=== PATIENT | female | born 1980 | race Caucasian/White ===

== ENCOUNTER → 2017-03-01 | Outpatient (CLI) | payer BC ==
[~2017-03-01] MED LIST: MONT1TAB5 PO; MULT-506 PO; VNTHFA/IN INH
== END | disposition home or self-care (01) ==
LOC: C.PAPS 13:36
PROVIDERS: ATTEND Obstetrics & Gynecology
DX: Z01.419 Encounter for gynecological examination (general) (routine) without abnormal findings (principal)

== ENCOUNTER 2017-07-29 18:07 | Emergency (ER) | payer BC ==
[~2017-07-29] VITALS: Ht 160 cm; Wt 48.4 kg
[~2017-07-29 18:07] MED LIST changes: -MONT1TAB5 PO; -VNTHFA/IN INH
[2017-07-29 18:12] VITALS: TEMP 37; Ht 160 cm; Wt 48.4 kg
[2017-07-29] MEDS ORDERED: SODIUM CHLORIDE 0.9% 1000ML 1,000 ML IV STA (18:22)
[2017-07-29] MEDS ORDERED: MONT1TAB5 PO (18:27)
--- NOTE | 2017-07-29 18:41 | EMERGENCY ROOM VISIT NOTE ---
History Report prepared by Scribe: Litzy Diez Under the Supervision of: Dr. Cesar Willis D.O. First contact with patient: 18:09 Chief Complaint: ANXIETY Stated Complaint: BREATHING DIFFICULTY History of Present Illness The patient is a 36 year old female who presents to the Emergency Room with complaints of difficulty breathing. She was brought to the ED via ALS. She reports while she was at work this evening, around 1730, she felt "severe chest pain" located in the middle of her chest and became short of breath. She denies any jaw pain or arm pain, but admits that upon EMS arrival, she experienced a "pins and needle sensation" to her hands, arms and feet. She still feels numbness in her bilateral feet here in the ED. The patient admits she has experienced similar symptoms like today's episode once before. She is not a smoker and has no personal history of heart disease. She admits to a family history of diabetes. The patient also admits to plane travel 2 weeks ago. She denies any personal history of previous blood clots or any recent calf swelling. She normally walks for exercises and reports she has never experienced symptoms like today's episode when she's been walking. The patient denies any chronic medical problems. She also denies any headache, change in vision, fevers, nausea, vomiting, diarrhea, pain with urination, and melena. Source of History: patient Onset: 1729 today Position: chest Quality: other (difficulty breathing) Associated Symptoms: + chest pain, + numbness (hands, arms, feet), No fevers , No headache, No nausea, No vomiting, No melena, No diarrhea, No urinary symptoms Review of Systems See HPI for pertinent positives & negatives. A total of 10 systems reviewed and were otherwise negative. Family History Diabetes mellitus Heart disease Social History Smoking Status: Never Smoker Alcohol Use: occasionally Drug Use: none Marital Status: Housing Status: lives with significant other Occupation Status: employed Current/Historical Medications Scheduled Montelukast Sodium (Montelukast Sodium), 10 MG PO HS Multivitamin (Multivitamin), 1 TAB PO DAILY Allergies Coded Allergies: No Known Allergies (Unverified , 07/29/17) Physical Exam Vital Signs Date Time Temp Pulse Resp B/P (MAP) Pulse Ox O2 Delivery O2 Flow Rate FiO2 07/29/17 21:13 72 16 113/67 97 Room Air 07/29/17 20:37 66 104/60 97 Room Air 07/29/17 19:24 73 20 120/69 99 Room Air 07/29/17 18:13 75 07/29/17 18:12 37.0 75 16 141/66 99 Room Air Physical Exam GENERAL: Patient is sitting up in bed, alert, well appearing, well nourished, no distress, non-toxic EYE EXAM: normal conjunctiva, PERRL and EOM's intact OROPHARYNX: no exudate, no erythema, lips, buccal mucosa, and tongue normal and mucous membranes are moist NECK: supple, no nuchal rigidity, no adenopathy, non-tender LUNGS: Clear to auscultation. Normal chest wall mechanics HEART: no murmurs, S1 normal and S2 normal ABDOMEN: abdomen soft, non-tender, normo-active bowel sounds, no masses, no rebound or guarding. BACK: Back is symmetrical on inspection and there is no deformity, no midline tenderness, no CVA tenderness. SKIN: no rashes and no bruising UPPER EXTREMITIES: upper extremities are grossly normal. LOWER EXTREMITIES: No pitting edema. NEURO EXAM: Normal sensorium, cranial nerves II-XII intact, normal speech, no weakness of arms, no weakness of legs. Medical Decision & Procedures ER Provider Diagnostic Interpretation: Radiology results as stated below per my review and the radiologist's interpretation: CHEST ONE VIEW PORTABLE HISTORY: 36 years-old Female acute atypical chest pain COMPARISON: Chest radiograph 04/29/2016. TECHNIQUE: Portable upright AP view of the chest FINDINGS: Cardiomediastinal and hilar silhouettes are within normal limits. There is no pneumothorax, pleural effusion or focal airspace consolidation. There is no overt pulmonary edema. Bones are grossly intact. IMPRESSION: No acute cardiopulmonary process. The above report was generated using voice recognition software. It may contain grammatical, syntax or spelling errors. Electronically signed by: Dominic Nix M.D. 07/29/2017 7:10 PM Laboratory Results 07/29/17 18:30 Red Blood Count 4.55, Mean Corpuscular Volume 83.5, Mean Corpuscular Hemoglobin 28.8, Mean Corpuscular Hemoglobin Concent 34.5, Mean Platelet Volume 9.5, Neutrophils (%) (Auto) 65.3, Lymphocytes (%) (Auto) 26.6, Monocytes (%) (Auto) 5.1, Eosinophils (%) (Auto) 2.2, Basophils (%) (Auto) 0.5, Neutrophils # (Auto) 5.05, Lymphocytes # (Auto) 2.05, Monocytes # (Auto) 0.39, Eosinophils # (Auto) 0.17, Basophils # (Auto) 0.04 07/29/17 18:30 Test 07/29/17 18:30 07/29/17 20:30 White Blood Count 7.72 K/uL (4.8-10.8) Red Blood Count 4.55 M/uL (4.2-5.4) Hemoglobin 13.1 g/dL (12.0-16.0) Hematocrit 38.0 % (37-47) Mean Corpuscular Volume 83.5 fL (80-100) Mean Corpuscular Hemoglobin 28.8 pg (25-34) Mean Corpuscular Hemoglobin Concent 34.5 g/dl (32-36) Platelet Count 283 K/uL (130-400) Mean Platelet Volume 9.5 fL (7.4-10.4) Neutrophils (%) (Auto) 65.3 % Lymphocytes (%) (Auto) 26.6 % Monocytes (%) (Auto) 5.1 % Eosinophils (%) (Auto) 2.2 % Basophils (%) (Auto) 0.5 % Neutrophils # (Auto) 5.05 K/uL (1.4-6.5) Lymphocytes # (Auto) 2.05 K/uL (1.2-3.4) Monocytes # (Auto) 0.39 K/uL (0.11-0.59) Eosinophils # (Auto) 0.17 K/uL (0-0.5) Basophils # (Auto) 0.04 K/uL (0-0.2) RDW Standard Deviation 38.8 fL (36.4-46.3) RDW Coefficient of Variation 12.8 % (11.5-14.5) Immature Granulocyte % (Auto) 0.3 % Immature Granulocyte # (Auto) 0.02 K/uL (0.00-0.02) D-Dimer < 190 ug/L FEU (0-500) Anion Gap 5.0 mmol/L (3-11) Est Creatinine Clear Calc Drug Dose 58.3 ml/min Estimated GFR () 82.8 Estimated GFR (Non- 71.4 BUN/Creatinine Ratio 14.7 (10-20) Calcium Level 9.2 mg/dl (8.5-10.1) Total Creatine Kinase 160 U/L (26-192) Creatine Kinase MB 2.2 ng/ml (0.5-3.6) Creatine Kinase MB Ratio 1.4 (0-3.0) Troponin I < 0.015 ng/ml (0-0.045) Laboratory results per my review. Medications Administered Medications (Trade) Dose Ordered Sig/Young Route Start Time Stop Time Status Last Admin Dose Admin Sodium Chloride 1,000 ml @ 999 mls/hr Q1H1M STAT IV 07/29/17 18:22 07/29/17 19:22 DC 07/29/17 18:43 999 MLS/HR ECG Indication: chest pain, SOB/dyspnea Rate (beats per minute): 70 Rhythm: sinus rhythm Findings: no ectopy, other (normal axis) ED Course ED COURSE: Vital signs were reviewed and showed the patient is hypertensive. The patients medical record was reviewed The above diagnostic studies were performed and reviewed. ED treatments and interventions as stated above. 1814: The patient was evaluated in room C1. A complete history and physical examination was performed. 1821: NSS 1000 ml @ 999 mls/hr IV. 0: Upon reevaluation, the patient is feeling much better. I discussed my findings with the patient and she understands and agrees with the treatment plan. Based on the patients age, coexisting illnesses, exam and lab findings the decision to treat as an outpatient was made. The patient remained stable while under my care. The patient appeared well at the time of discharge. Medical Decision Differential diagnoses includes but is not limited to acute coronary syndrome, myocardial infarction, pericarditis, pulmonary embolus, aortic dissection, pneumonia, pneumothorax, musculoskeletal, shingles, esophageal. Patient is a 36-year-old female who presents to the ER for midsternal chest pain associated with bilateral paresthesias in the upper and lower extremities. She notes pain was worse with breathing. No focal deficit. Completely neurologically intact. EKG was unremarkable. She denies any history of diabetes, hypertension, hyperlipidemia, CAD, smoking or sudden in her family. Patient admits to a recent trip 2 weeks ago. She denies any swelling or calfs, hemoptysis, history of cancer, control, previous blood clots, or recent surgeries. Patient is completely back to baseline with the exception of mild paresthesias in the lower extremities. Normally does not experience any chest pain or shortness of breath with exertion. Troponin was negative 2. D-dimer was negative. Chest x-ray unremarkable. Patient was up to reverse her findings. She was discharged follow-up with PCP completely back to her baseline. Discussed with Pt concerning signs and symptoms to watch out for. Pt was instructed to follow up with their PCP and discussed with the patient their option to return to the ED at anytime for persistent or worsening symptoms. The appropriate anticipatory guidance and out-patient management, including indications for return to the emergency department, were explained at length to the patient and understood. Medication Reconcilliation Current Medication List: was personally reviewed by me Blood Pressure Screening Patient's blood pressure: Elevated blood pressure Blood pressure disposition: Elevated BP felt to be situational Impression Primary Impression: Precordial chest pain Additional Impression: Paresthesia Scribe Attestation The scribe's documentation has been prepared under my direction and personally reviewed by me in its entirety. I confirm that the note above accurately reflects all work, treatment, procedures, and medical decision making performed by me. Departure Information Dispostion Home / Self-Care Referrals Ruperto Boles, D.O.Int.Med. (PCP) Patient Instructions Chest Pain - [facility], [facility] Additional Instructions Please follow up with your primary care doctor with in the next 24 hours. Any worsening of your symptoms, please return to the ED immediately. This includes any fevers greater than 100.4, worsening pain, chest pain, shortness breath, persistent nausea, vomiting, unable to eat or drink, or any other concerning signs or symptoms from your standpoint. Problem Qualifiers
[2017-07-29 18:53] LABS: BASO % 0.5 %; BASO ABS # 0.04 K/uL (0-0.2); COMPLETE YES; EOS % 2.2 %; IG% 0.3 %; LYMPH % 26.6 %; LYMPH ABS # 2.05 K/uL (1.2-3.4); MEAN CELL VOLUME 83.5 fL (80-100); MEAN CORPUSCULAR HEMOGLOBIN 28.8 pg (25-34); MEAN CORPUSCULAR HGB CONC 34.5 g/dl (32-36); MEAN PLATELET VOLUME 9.5 fL (7.4-10.4); MONO % 5.1 %; NEUT % 65.3 %; PLATELET COUNT 283 K/uL (130-400); RED BLOOD COUNT 4.55 M/uL (4.2-5.4); WHITE BLOOD COUNT 7.72 K/uL (4.8-10.8)
[2017-07-29 19:09] LABS: BLOOD UREA NITROGEN 15 mg/dl (7-18); BUN/CREATININE RATIO 14.7 (10-20); CALCIUM 9.2 mg/dl (8.5-10.1); CARBON DIOXIDE 29 mmol/L (21-32); CHLORIDE 106 mmol/L (98-107); GLUCOSE 68 mg/dl (70-99); POTASSIUM 3.4 mmol/L (3.5-5.1); SODIUM 140 mmol/L (136-145)
--- NOTE | 2017-07-29 19:11 | DIAGNOSTIC IMAGING REPORT ---
CHEST ONE VIEW PORTABLE HISTORY: 36 years-old Female acute atypical chest pain COMPARISON: Chest radiograph 04/29/2016. TECHNIQUE: Portable upright AP view of the chest FINDINGS: Cardiomediastinal and hilar silhouettes are within normal limits. There is no pneumothorax, pleural effusion or focal airspace consolidation. There is no overt pulmonary edema. Bones are grossly intact. IMPRESSION: No acute cardiopulmonary process. The above report was generated using voice recognition software. It may contain grammatical, syntax or spelling errors. Electronically signed by: Dominic Nix M.D. 07/29/2017 7:10 PM Dictated Date/Time: 07/29/2017 7:09 PM
[2017-07-29 19:14] LABS: CKMB/CK RATIO 1.4 (0-3.0)
[2017-07-29 21:13] VITALS: BP 113/67; PULSE 72; O2SAT 97
== END 2017-07-29 21:42 | disposition home or self-care (01) ==
LOC: EDBD 18:07 → C.EDC 18:08
DX: R07.2 Precordial pain (principal); R20.9 Unspecified disturbances of skin sensation; Z83.3 Family history of diabetes mellitus; Z82.49 Family history of ischemic heart disease and other diseases of the circulatory system

== ENCOUNTER → 2018-04-11 | Outpatient (CLI) | payer OTHER ==
[~2018-04-11] MED LIST changes: +MONT1TAB5 PO
== END | disposition home or self-care (01) ==
LOC: C.LABBC 09:49
PROVIDERS: ATTEND Family Medicine Adult Medicine
DX: Z02.1 Encounter for pre-employment examination (principal)